=== PATIENT | male | born 1980 | race Caucasian/White ===

== ENCOUNTER 2023-06-28 08:09 | Outpatient (CLI) | payer OTHER, SELFPAY | END 2023-06-28 08:10 | disposition home or self-care (01) | PROVIDERS: PCP Family Medicine; Visit Provider Family Medicine | DX: Z00.00 Encounter for general adult medical examination without abnormal findings (principal); R76.8 Other specified abnormal immunological findings in serum; Z11.59 Encounter for screening for other viral diseases; Z13.6 Encounter for screening for cardiovascular disorders | CPT/HCPCS: 80053; 80061; 86803; 87522 ==

== ENCOUNTER 2024-07-18 09:17 | Emergency (ER) | payer OTHER, SELFPAY ==
[2024-07-18 09:28] VITALS: BP 149/90; PULSE 74; RESP 20; TEMP 36.8; O2SAT 99; BMI 22.5
--- NOTE | 2024-07-18 09:30 | CRLHL7_ITS ---
For Patients: As a result of the Cures Act, medical imaging exams and procedure reports are released immediately into your electronic medical record. You may view this report before your referring provider. If you have questions, please contact your health care provider. Indication: PUNCHED DOOR, PAIN IN KNUCKLES Technique: Three views of the right hand Comparison: None Findings/Impression: Transverse fracture of the distal right 5th metacarpal shaft with mild palmar angulation of the distal fracture segment. No intra-articular extension of the fracture. Mild adjacent soft tissue swelling. The remainder of the examination is unremarkable. Dictated by Soren Soliz MD @ 07/18/2024 10:07:31 AM (Electronically Signed)
--- NOTE | 2024-07-18 10:02 | ED_ITS ---
HPI - Extremity Injury (Upper) General Date Seen: 07/18/24 Chief Complaint: Extremity Pain/Injury, Upper Stated Complaint: right hand injury Time Seen by Provider: 07/18/24 09:17 Source: patient Mode of arrival: ambulatory Limitations: no limitations History of Present Illness HPI narrative: Patient is a 43-year-old male presenting for pain to his right hand. He states he had some stomach around his car and he got frustrated so he punched describes door. He now has pain and swelling at the base of his 5th digit on his right hand. States the pain is currently tolerable and does not need anything for pain. Has some abrasions to his knuckles and states his tetanus is up-to-date. No other concerns noted. Denies any numbness at this time. Related Data Home Medications ?Medication ?Instructions ?Recorded ?Confirmed multivitamin 1 tab PO QAM 06/05/22 06/28/23 Previous Rx's ?Medication ?Instructions ?Recorded gazrjbvujp-hwcuhvoyabbak-oiwyawtm 1 cap PO Q8H PRN pain #10 caps 06/28/23 50 mg-300 mg-40 mg capsule (Fioricet) escitalopram oxalate 20 mg tablet 20 mg PO QDAY #90 tabs 06/28/23 (Lexapro) oxycodone 5 mg tablet 5 mg PO Q6H PRN pain #12 tabs 07/18/24 Allergies Allergy/AdvReac Type Severity Reaction Status Date / Time acetaminophen AdvReac Mild gets a Verified 06/28/23 07:49 headache just from the #3 not regular tylenol codeine AdvReac Mild gets a Verified 06/28/23 07:49 headache just from the #3 not regular tylenol Shellfish Allergy Allergy Unknown Uncoded 06/28/23 07:49 Review of Systems Narrative: Pertinent systems reviewed and were negative unless stated in HPI PFSH PFSH Medical History Frequent headaches ?R51.9 - Headache, unspecified (ICD-10) Surgical History History of operative procedure on hip ?Z98.890 - Other specified postprocedural states (ICD-10) Family History Brother Anxiety disorder Seizure disorder Mother Anxiety disorder Paternal Grandfather Colon cancer Father Aortic aneurysm Social History Narrative: does not drink alcohol does not use illicit drugs former smoker- quit in 2006 Smoking Status: Former smoker How often do you have a drink containing alcohol: never AUDIT-C Alcohol total score: 0 Non-prescribed substance use: marijuana (any form) Little interest or pleasure in doing things: not at all Feeling down, depressed, or hopeless: not at all Exam Narrative: Exam Narrative: Const: Well-nourished, Well-developed, in mild distress Eyes: PERRL, no conjunctival injection, and symmetrical lids HENT: Atraumatic external nose and ears. Moist mucous membranes. MSK:Extremities w/o deformity, Normal Active ROM Skin: Warm, Dry. Abrasions noted to the 3rd and 4th PIP on right hand. Swelling and tenderness noted at the base of the right 5th digit Neuro: Normal Muscle tone, No focal neurological deficits. Psych: Awake, Alert, & Oriented x3. Appropriate mood and affect. Const: Vital Signs, click to edit/add: Vital Signs - 24 hr 07/18/24 09:28 Temperature 98.2 F Pulse Rate [Pulse Oximeter] 74 Respiratory Rate 20 Blood Pressure [Le ft Upper Arm] 149/90 H Pulse Oximetry 99 Oxygen Delivery Me thod Room Air Course Vital Signs Vital signs: Initial Vital Signs Temperature 98.2 F 07/18/24 09:28 Temperature Source Temporal Artery Scan 07/18/24 09:28 Pulse Rate 74 07/18/24 09:28 Respiratory Rate 20 07/18/24 09:28 Blood Pressure 149/90 H 07/18/24 09:28 Blood Pressure Mean 109 H 07/18/24 09:28 Pulse Oximetry 99 07/18/24 09:28 Oxygen Delivery Method Room Air 07/18/24 09:28 Vital Signs Temperature 98.2 F 07/18/24 09:28 Pulse Rate 74 07/18/24 09:28 Respiratory Rate 20 07/18/24 09:28 Blood Pressure 149/90 H 07/18/24 09:28 Pulse Oximetry 99 07/18/24 09:28 Oxygen Delivery Method Room Air 07/18/24 09:28 Temperature 98.2 F 07/18/24 09:28 Pulse Rate 74 07/18/24 09:28 Respiratory Rate 20 07/18/24 09:28 Blood Pressure 149/90 H 07/18/24 09:28 Pulse Oximetry 99 07/18/24 09:28 Oxygen Delivery Method Room Air 07/18/24 09:28 MDM - Extremity Injury (Upper) MDM Narrative Medical decision making narrative: Patient is a 43-year-old male presenting for concern a right hand fracture. X- ray was done showing a boxer's fracture. I reviewed it with the radiologist and angulation as well 37-38 degrees of the neck. This does not require immediate reduction. Patient has a slight tingling sensation to the finger but does feel me when I touch him and is vascular intact. I did speak to the on-call orthopedic provider and was informed the patient can follow-up outpatient. A volar splint was placed. He is doing well and can be discharged home with follow-up with Orthopedics. He is in minimal pain at this time but considering likely increase in pain within the next few days I will prescribe him oxycodone. No history of drug abuse. Discharge Plan Discharge Clinical Impression: Fracture of fifth metacarpal bone Qualifiers: Encounter type: initial encounter Fracture type: closed Metacarpal location: neck Fracture alignment: displaced Laterality: right Qualified Code(s): S62.336A - Displaced fracture of neck of fifth metacarpal bone, right hand, initial encounter for closed fracture Patient Disposition: Home, Self-Care Condition: Stable Instructions: Hand Fracture (DC) Additional Instructions: Follow-up with [facility] for your fracture. Their number is [phone]. Take Tylenol and ibuprofen for pain but that is not working use the oxycodone Prescriptions: New oxycodone 5 mg tablet 5 mg PO Q6H PRN (Reason: pain) Qty: 12 0RF No Action multivitamin Tablet 1 tab PO QAM escitalopram oxalate [Lexapro] 20 mg tablet 20 mg PO QDAY Qty: 90 3RF [id number]-vrtaspwndgrff-[id number] [Fioricet] 50-300-40 mg capsule 1 cap PO Q8H PRN (Reason: pain) Qty: 10 0RF Follow Up/Referrals: Simin Garcia MD [Primary Care Provider] - Stand Alone Forms: MyHealth Info Instructions Procedures Orthopedic Splinting/Casting Fifth metacarpal: Side: right Upper Extremity Injury Location: hand Upper extremity immobilizer: volar splint Applied by clinician: MD/DO Conclusion: patient tolerated procedure
== END 2024-07-18 11:41 | disposition home or self-care (01) ==
PROVIDERS: Emergency Provider Student in an Organized Health Care Education/Training Program; PCP Family Medicine
DX: S62.336A Displaced fracture of neck of fifth metacarpal bone, right hand, initial encounter for closed fracture (principal); W22.09XA Striking against other stationary object, initial encounter
CPT/HCPCS: 29125; 73120; 99282; 99283